=== PATIENT | female | born 1960 | race Caucasian/White ===

== ENCOUNTER → 2017-05-20 | Outpatient (CLI) | payer BC | LOC: FIMAGING 08:03 | PROVIDERS: ATTEND Family Medicine | DX: Z12.31 Encounter for screening mammogram for malignant neoplasm of breast (principal); Z13.820 Encounter for screening for osteoporosis; Z78.0 Asymptomatic menopausal state; M85.80 Other specified disorders of bone density and structure, unspecified site | CPT/HCPCS: G0202 ==

== ENCOUNTER 2018-03-30 18:38 | Emergency (ER) | payer OTHER, BC ==
[2018-03-30 18:44] VITALS: BP 157/92
--- NOTE | 2018-03-30 19:00 | EDPHY ---
General Time Seen by Provider: 03/30/18 18:47 Narrative: CHIEF COMPLAINT: Scalp laceration HISTORY OF PRESENT ILLNESS: Patient presents with complaints of scalp laceration. She says she was walking in her work just prior to arrival when she slipped on a wet floor. She landed on the back of her head on a hard surface. She did not lose consciousness. She sustained a laceration that was "hemorrhaging."She feels fine other than mild headache at the site of the fall. No neck pain or stiffness. No generalized headache. No visual disturbance. No vomiting. No pain or injury elsewhere. Her tetanus up-to-date less than 2 years ago. She does not take any anticoagulants. No other associated complaints or modifying factors. REVIEW OF SYSTEMS: Ten systems reviewed and are negative unless otherwise noted in the HPI PCP: Dr. Mistry SPECIALISTS: None PAST MEDICAL HISTORY: Uncomplicated. She does not take any anticoagulants. PAST SURGICAL HISTORY: No recent surgeries. SOCIAL HISTORY: Nonsmoker. Lives and works here independently. FAMILY HISTORY: Noncontributory EXAMINATION General Appearance: Alert, no distress Head: normocephalic. No Mann sign. No raccoon eyes. No depression or deformity. There is a scalp laceration of the left side of the occiput, 3 cm in length. Superficial. No exposure of the galea. No foreign body. Eyes: Pupils equal and round, no conjunctival pallor or injection. EOMs are intact. No nystagmus. ENT, Mouth: Mucous membranes moist Neck: Normal inspection, supple, non-tender. No crepitus or deformity. Respiratory: No retractions or distress. Cardiovascular: Regular rate. Good signs of perfusion Gastrointestinal: Abdomen is soft and nontender Back: non-tender, no bony abnormalities Neurological: GCS 15. A&O, nonfocal, normal gait Skin: Warm and dry, no rash. Scalp laceration as above. Extremities: Nontender, no pedal edema Psychiatric: Mood and affect normal DIFFERENTIAL DIAGNOSES: Including but not limited to intracranial hemorrhage, closed head injury, scalp laceration, concussion, basilar skull fracture MDM: 6:50 p.m. Mechanical fall with scalp laceration with no evidence of basilar skull fracture. Low risk for intracranial abnormality. [place] CT head rules criteria are negative for CT scan. Her tetanus is up-to-date. I have anesthetize the area. We will irrigate and re-evaluate for the possibility of needing closure. 7:20 p.m. Wound has been irrigated. This will require closure as there is 2 mm distraction of the wound borders. No foreign body. No injury to the galea. No pulsatile bleeding. 7:30 p.m. Wound has been closed without any difficulty. Excellent approximation. Wound care discussed. Bacitracin applied. She will be discharged in stable conditions with instructions to return here in 10 days for staple removal. PROCEDURE: Laceration repair Consent: Verbal Location: Left occipital scalp Length of repair: 4 cm Complexity: Complex Layer involvement: Single Anesthesia: Local. 1% lidocaine plain. 5 mL Irrigation: Extensive Debridement: None Procedure description: Following good anesthesia, the wound was copiously irrigated. Wound bed was explored with a sterile glove, and there is no foreign body noted. No injury to the galea Wound borders were approximated well with good hemostasis. Tolerated well without complication. Suture/Staple material: 6 khadijah Wound care: Routine as discussed Suture/Staple removal: 10 Days SUPERVISION: This patient was independently evaluated without direct involvement of or examination by the attending physician. - History Smoking Status: Never smoked - Objective Vital Signs: Initial Vital Signs Temperature (C) 97.9 F 03/30/18 18:39 Heart Rate 90 03/30/18 18:39 Respiratory Rate 18 03/30/18 18:39 Blood Pressure 157/92 H 03/30/18 18:39 O2 Sat (%) 95 03/30/18 18:39 O2 Delivery Mode Room Air Allergies/Adverse Reactions: No Known Allergies Allergy (Unverified 03/30/18 18:44) Home Medications: Medication Instructions Recorded NK [No Known Home Meds] 03/30/18 Departure - Departure Disposition: Home, Routine, Self-Care Clinical Impression: Occipital scalp laceration Qualifiers: Encounter type: initial encounter Qualified Code(s): S01.01XA - Laceration without foreign body of scalp, initial encounter Closed head injury Qualifiers: Encounter type: initial encounter Qualified Code(s): S09.90XA - Unspecified injury of head, initial encounter Condition: Good Instructions: Laceration (ED), Head Injury (ED), Staple Care (ED) Additional Instructions: 1. Daily wound care as discussed 2. No submerging under hot tubs, swimming pools or baths does until khadijah are removed 3. ED precautions for any sudden change in headache, severe headache, neck pain or stiffness, fever, nausea vomiting, bruising around the eyes, bruising behind the ears 4. Return to this emergency department in 10 days for staple removal Referrals: [facility] [Primary Care Provider] - As per Instructions Physician,Emergency Dept, [Medical Doctor] - As per Instructions (Ten days for staple removal)
== END 2018-03-30 19:30 | disposition home or self-care (01) ==
PROC: 0HQ0XZZ Repair Scalp Skin, External Approach (ICD-10-PCS; principal; 2018-03-30)
DX: S01.01XA Laceration without foreign body of scalp, initial encounter (principal); W01.0XXA Fall on same level from slipping, tripping and stumbling without subsequent striking against object, initial encounter; Y99.0 Civilian activity done for income or pay; Y93.01 Activity, walking, marching and hiking

== ENCOUNTER → 2018-05-07 | Outpatient (CLI) | payer BC | LOC: FIMAGING 08:11 | PROVIDERS: ATTEND Family Medicine | DX: Z12.31 Encounter for screening mammogram for malignant neoplasm of breast (principal) ==

== ENCOUNTER → 2019-05-10 | Outpatient (CLI) | payer BC | LOC: FIMAGING 08:33 ==